=== PATIENT | male | born 1965 | race Caucasian/White ===

== ENCOUNTER 2018-11-30 05:52 | Inpatient (IN) ==
--- NOTE | 2018-11-27 09:16 | Anesthesiology Consultation ---
Date of Service November 27, 2018 Assessment & Plan (1) Encounter for pre-operative examination: PCP CLEARANCE 11/26/18: "Pt is medically cleared for surgery." Chart Review Chart Review: Acceptable Risk for Surgery and Patient NOT seen in Pre Admission Testing History Surgery Operation Date: 11/30/18 07:45 Proposed Procedures p L4-L5 Posterior Lumbar Decompression, L4-L5 Coflex, Spinal Cord Monitoring - Brad Carrion DO Height/Weight Height: 5 ft 8 in Weight: 97.522 kg Allergies Allergy/AdvReac Type Severity Reaction Status Date / Time No Known Allergies Allergy Verified 11/16/18 08:52 Medications Home Medications Medication Instructions Recorded Confirmed Last Taken ibuprofen 400 mg PO HS PRN 11/16/18 11/16/18 Unknown Past Medical History Medical History Chronic back pain LOWER BACK PAIN RADIATING INTO LEFT KNEE AND RIGHT BUTTOCK AND FOOT. Degenerative disc disease Obesity Past Surgical History Surgical History History of arthroscopy LEFT AND RIGHT ARM BICEP REPAIR Social History Smoking Status: Current every day smoker tobacco type: cigarettes Smoking cigarettes per day: HX OF 1/2 PPD X15 + YEARS Hx Alcohol Use: No Alcohol Intake Frequency Comment: 0 Hx Substance Use: No substance use type: does not use Testing Electrocardiogram Date: 11/25/18 Findings: + NSR @ (80) Chest X-Ray Date: 11/11/18 Findings: + NAD Laboratory Results 11/11/17 WBC: 14.1 H/H: 16.6/49.3 PLATELETS: 200 SODIUM: 137 POTASSIUM: 4.0 CHLORIDE: 105 CO2: 27 BUN: 15 CREATININE: 1.1 GLUCOSE: 94 PT: 13.2 PTT: 32.9 INR: 1.0 UA: negative for bacteria
[2018-11-30] MEDS ORDERED: CEFAZOLIN 2000MG 2,000 MG/15 ML SYR IV SCH (06:00)
[2018-11-30] MEDS ORDERED: GABAPENTIN 300 MG x 3 PO SCH (06:00)
[2018-11-30] MEDS ORDERED: ACETAMINOPHEN 500 MG TAB PO SCH (06:00)
[2018-11-30] MEDS ORDERED: CeleBREX 200 MG CAP PO SCH (06:00)
[2018-11-30] MEDS ORDERED: LR 15ML/HR IV SCH (06:00)
[2018-11-30] MEDS ORDERED: PROPOFOL IV EMULSION 10 MG/ML 100 ML VIAL IV ONE (06:54)
[2018-11-30] MEDS ORDERED: MIDAZOLAM HCL 1 MG/ML 2ML VIAL ONE (06:59)
[2018-11-30] MEDS ORDERED: fentaNYL citrate 100 MCG/2 ML VIAL ONE (06:59)
[2018-11-30] MEDS ORDERED: HYDROmorphone INJ 2 MG/ML SYR/VIAL ONE (07:10)
[2018-11-30] MEDS ORDERED: PROMETHAZINE HCL 6.25 MG in SODIUM CHLORIDE 0.9% 50 ML IV PRN (07:19)
[2018-11-30] MEDS ORDERED: ePHEDrine sulfate 50 MG/ML AMP IV PRN (07:19)
[2018-11-30] MEDS ORDERED: ONDANSETRON INJ 2 MG/ML 2 ML VIAL IV PRN ×2 (07:19→12:15)
[2018-11-30] MEDS ORDERED: ATROPINE SULFATE 0.1 MG/ML 10ML SYR IV PRN (07:19)
[2018-11-30] MEDS ORDERED: BUPIVACAINE/EPINEPHRINE 0.5% MPF 1:200,000 30 ML VIAL ONE (07:23)
[2018-11-30] MEDS ORDERED: BACITRACIN INJ 50,000 UNIT VIAL ONE (07:24)
--- NOTE | 2018-11-30 07:34 | History & Physical Bridge Note ---
Date of Service November 30, 2018 History & Physical Bridge Note I have examined the patient, reviewed the History & Physical and in the interval since the performance of the History & Physical I have noted the following changes of clinical significance: no changes noted
--- NOTE | 2018-11-30 07:34 | History & Physical Report ---
Date of Service November 30, 2018 Assessment & Plan (1) Spinal stenosis, lumbar region with neurogenic claudication: Posterior lumbar decompression L4-5 Coflex L4-5 Present on Admission?: Yes History of Present Illness Chief Complaint: Back and leg pain Primary Care Provider: NO PCP Back and leg pain Allergies Allergy/AdvReac Type Severity Reaction Status Date / Time No Known Allergies Allergy Verified 11/30/18 06:35 Home Medications Home Medications Medication Instructions Recorded Confirmed Type ibuprofen 400 mg PO HS PRN 11/16/18 11/30/18 History Past Med/Surg History Medical History Chronic back pain LOWER BACK PAIN RADIATING INTO LEFT KNEE AND RIGHT BUTTOCK AND FOOT. Degenerative disc disease Obesity Surgical History History of arthroscopy LEFT AND RIGHT ARM BICEP REPAIR Social History Preferred Language: Sami Communication Ability: Effective Billing Spec Required: No Current Living Situation: Spouse Other Information That Helps Us Care for You: No Feels Safe at Home: Yes Safety Concerns: Feels Safe At This Time Smoking Status: Current every day smoker Tobacco Type: cigarettes Cigarettes Per Day: HX OF 1/2 PPD X15 + YEARS Second Hand Exposure: No Tobacco Cessation Education Requested by Patient: No Hx Alcohol Use: No Hx Substance Use: No Physical Exam Vital Signs (Past 24 Hours): Last Vital Signs Temp 36.8 C 11/30/18 06:38 Pulse 56 L 11/30/18 06:38 Resp 20 11/30/18 06:38 BP 116/74 11/30/18 06:38 Pulse Ox 95 11/30/18 06:38 Physical Exam: Patient is neurologically intact alert and oriented
[2018-11-30] MEDS ORDERED: DEXAMETHASONE SOD INJ 4 MG/ML VIAL ONE (08:08)
[2018-11-30] MEDS ORDERED: NEOSTIGMINE METHYLSULFATE 1 MG/ML 10ML VIAL ONE (08:08)
[2018-11-30] MEDS ORDERED: PROPOFOL IV EMULSION 10 MG/ML 20 ML VIAL IV ONE (08:08)
[2018-11-30] MEDS ORDERED: GLYCOPYRROLATE 0.2 MG/ML VIAL ONE (08:08)
[2018-11-30] MEDS ORDERED: ONDANSETRON INJ 2 MG/ML 2 ML VIAL ONE (08:08)
[2018-11-30] MEDS ORDERED: LIDOCAINE HCL 2% 2 ML VIAL/AMP(20MG/ML) INFIL ONE (08:08)
[2018-11-30] MEDS ORDERED: LARYING-O-JET KIT (LTA) ONE (08:28)
[2018-11-30] MEDS ORDERED: FLOSEAL HEMOSTATIC MATRIX 10ML TOP ONE (08:31)
--- NOTE | 2018-11-30 08:41 | Operative Report ---
Post Operative Report Pre & Post Diagnosis Operation Date: 11/30/18 07:45 Pre-Op Diagnosis: Lumbar spinal stenosis with neurogenic claudication Post-Op Diagnosis: Same Procedure Operation Date: 11/30/18 07:45 Actual Procedures #1 lumbar decompression bilateral medial facetectomies foraminotomies L4-5. #2 placement posterior instrumentation using Coflex 12 mm implant. Surgeon Brad Carrion, DO Business Machine Mechanic Carline Davis Estimated Blood Loss 25 Findings See Below Patient is 5 foot 8 and 101 kg with a BMI of 34.1. His obesity added considerable technical difficulty to the exposure and procedure adding at least 25% more operative time to this surgery. Specimens None Indications This is a 53-year-old male well-known to me that presents with chronic persistent back and bilateral leg pain after failing extensive course of nonoperative care he like to undergo the above-mentioned procedure. Description of Procedure Patient was met with preoperatively identified all questions addressed and informed consent obtained. Patient was then taken to the operative suite underwent intubation placed in a prone position Brad table on top of the Horacio frame. All bony prominences well-padded eyes inspected to ensure no external pressure placed upon but this point the lumbar spine is prepped and draped in normal sterile fashion. Sharp dissection with the assistance of Bovie cautery was performed down to and exposing the l interlaminar space at L4-5 bilaterally. I verified my position with fluoroscopy and then performed a midline decompression including bilateral medial facetectomies to address lateral recess disease. I explored for any loose fragments of disc material. The incision was then copiously irrigated and a 12 mm Coflex placed in the interlaminar space and crimped into position. A 10 round JLUIS drain was inserted. Incision was then closed with 1 Vicryl in the fascia 2-0 Vicryl subcutaneously and 4 Monocryl for final skin closure Steri-Strip sterile dressings placed. Patient will continue PACU stable condition. He is note Carline Davis present at the entire procedure involved the patient positioning complex portions of the surgery and final skin closure. I attest to the content of the Intraoperative Record and any orders documented therein. Any exceptions are noted below.
--- NOTE | 2018-11-30 09:07 | Fluoroscopy Report ---
FL spine 1V any level HISTORY: Fusion. Laminectomy.. FLUOROSCOPY TIME: . FINDINGS: Intraoperative fluoroscopy was provided for the lumbar spine. 1 fluoroscopic spot images we re obtained. IMPRESSION: Fluoroscopy provided for a L4-L5 decompression and fusion. The above report was generated using voice recognition software. It may contain grammatical, syntax or spelling errors. Electronically signed by: Sincere Reynoso M.D. 11/30/2018 9:06 AM
[2018-11-30] MEDS: fentaNYL citrate 100 MCG/2 ML VIAL IV PRN ×2 (09:14→09:26)
--- NOTE | 2018-11-30 09:27 | Anesthesiology Progress Note ---
Date of Service November 30, 2018 Anesthesia Post Procedure Vital Signs Vital Signs: Temp Pulse Pulse Resp BP Pulse Ox 11/30/18 09:15 60 12 123/75 98 11/30/18 09:05 81 17 109/67 99 11/30/18 08:57 36.7 C 58 L 12 123/64 98 11/30/18 06:38 36.8 C 56 L 20 116/74 95 Pain Intensity Back: Pain Intensity: 8 Transfer of Care Handoff Completed per policy Notes Mental Status: alert / awake / arousable Patient Amnestic to Procedure: Yes Nausea / Vomiting: adequately controlled Pain: adequately controlled Airway Patency, RR, SpO2: stable & adequate BP & HR: stable & adequate Hydration State: stable & adequate Anesthetic Complications: no major complications apparent
[2018-11-30] MEDS: HYDROmorphone INJ 2 MG/ML SYR/VIAL IV PRN ×3 (09:31→11:07)
[2018-11-30] MEDS ORDERED: ROCURONIUM BROMIDE 10 MG/ML 5 ML VIAL ONE (10:26)
[2018-11-30] MEDS ORDERED: TRAMADOL HCL 50 MG TABLET PO PRN (12:15)
[2018-11-30] MEDS ORDERED: DO NOT ADMINISTER FLU VACCINE PRN (12:15)
[2018-11-30] MEDS ORDERED: FAMOTIDINE 20 MG TAB PO PRN (12:15)
[2018-11-30] MEDS ORDERED: BISACODYL 10 MG SUPP PR PRN (12:15)
[2018-11-30] MEDS ORDERED: ACETAMINOPHEN 1,000 MG/100 ML VIAL IV PRN (12:15)
[2018-11-30] MEDS ORDERED: ACETAMINOPHEN 500 MG TAB PO PRN (12:15)
[2018-11-30] MEDS ORDERED: ALUMINUM/MAGNESIUM SUSP 30 ML UDC PO PRN (12:15)
[2018-11-30] MEDS ORDERED: ONDANSETRON 4 MG TAB PO PRN (12:15)
[2018-11-30] MEDS ORDERED: DO NOT ADMINISTER PNEUMOCOCCAL VACCINE PRN (12:15)
[2018-11-30] MEDS ORDERED: LORazepam 0.5 MG/1 ML VIAL IV PRN (12:15)
[2018-11-30] MEDS ORDERED: HYDROmorphone INJ 0.5 MG/0.5 ML SYR IV PRN (12:15)
[2018-11-30] MEDS ORDERED: METOCLOPRAMIDE HCL INJ 5 MG/ML 2 ML VIAL IV PRN (12:15)
[2018-11-30] MEDS ORDERED: MAGNESIUM HYDROXIDE SUSP 30 ML UDC PO PRN (12:15)
[2018-11-30] MEDS ORDERED: PROMETHAZINE HCL 12.5 MG in SODIUM CHLORIDE 0.9% 50 ML IV PRN (12:15)
[2018-11-30] MEDS: KETOROLAC 30 MG/ML VIAL IV SCH ×2 (14:23→19:31)
[2018-11-30] MEDS: LACTATED RINGER'S 1,000 ML IV SCH ×2 (14:27→20:42)
[2018-11-30] MEDS: CEFAZOLIN 2000MG 2,000 MG/15 ML SYR IV SCH (16:24)
[2018-11-30] MEDS: OXYCODONE HCL IR 5 MG TAB (IMMEDIATE RELEASE) PO PRN (17:47)
[2018-11-30] MEDS ORDERED: DOCUSATE SODIUM/SENNA 50/8.6MG TAB PO SCH (21:00)
[2018-12-01] MEDS: CEFAZOLIN 2000MG 2,000 MG/15 ML SYR IV SCH (01:27)
[2018-12-01] MEDS: KETOROLAC 30 MG/ML VIAL IV SCH ×2 (01:32→07:39)
[2018-12-01] MEDS ORDERED: POLYETHYLENE (MIRALAX) 17 GM PACK PO SCH (06:00)
--- NOTE | 2018-12-01 07:46 | Anesthesiology Progress Note ---
Date of Service December 01, 2018 Anesthesia Post Procedure Vital Signs Vital Signs: Temp Pulse Pulse Pulse Resp BP Pulse Ox 12/01/18 07:03 36.6 C 54 L 20 112/72 96 12/01/18 03:14 36.6 C 57 L 16 130/62 97 11/30/18 22:45 36.7 C 58 L 16 106/60 93 11/30/18 19:55 36.8 C 77 18 130/75 94 11/30/18 16:27 94 11/30/18 15:00 36.7 C 71 16 116/73 96 11/30/18 14:00 88 16 132/77 94 11/30/18 13:00 64 16 125/76 94 11/30/18 12:29 36.6 C 62 17 118/69 95 11/30/18 12:00 36.8 C 65 16 114/72 98 11/30/18 11:35 50 L 12 100/76 94 11/30/18 11:25 36.5 C 65 12 111/73 95 11/30/18 11:15 79 14 117/82 96 11/30/18 11:05 80 14 133/87 96 11/30/18 10:55 63 18 115/74 96 11/30/18 10:45 54 L 12 102/71 95 11/30/18 10:35 60 12 110/77 94 11/30/18 10:25 70 16 116/76 95 11/30/18 10:15 50 L 12 129/76 95 11/30/18 10:05 73 15 125/78 97 11/30/18 09:55 54 L 12 129/91 94 11/30/18 09:45 65 14 128/85 97 11/30/18 09:35 50 L 12 100/75 94 11/30/18 09:25 71 15 134/72 98 11/30/18 09:15 60 12 123/75 98 11/30/18 09:05 81 17 109/67 99 11/30/18 08:57 36.7 C 58 L 12 123/64 98 Pain Intensity Back: Pain Intensity: 4 Notes Mental Status: alert / awake / arousable Patient Amnestic to Procedure: Yes Nausea / Vomiting: adequately controlled Pain: improving with treatment Airway Patency, RR, SpO2: stable & adequate BP & HR: stable & adequate Hydration State: stable & adequate Anesthetic Complications: no major complications apparent
[2018-12-01] MEDS: OXYCODONE HCL IR 5 MG TAB (IMMEDIATE RELEASE) PO PRN (12:32)
--- NOTE | 2018-12-01 14:23 | Discharge Summary ---
Date of Service December 01, 2018 Admission HPI Per Admitting Provider Back and leg pain Principal Diagnosis Lumbar spinal stenosis with neurogenic claudication Discharge Data Allergies Allergy/AdvReac Type Severity Reaction Status Date / Time No Known Allergies Allergy Verified 11/30/18 06:35 Consultations 11/30/18 12:15 Consult Case Management - Discharge Planning Routine Procedures Performed Operation Date: 11/30/18 07:45 Actual Procedures p L4-L5 Posterior Lumbar Decompression, L4-L5 Coflex(Not Applicable) - Brad Carrion DO Ordered Studies 11/30/18 07:45 FL fluoroscopy <1hr Routine [place] spine 1V any level Routine Hospital Course (1) Spinal stenosis, lumbar region with neurogenic claudication: Patient underwent decompression Coflex placement L4-5 tolerated as well as taken to orthopedic for postoperative postop day 1 leg symptoms markedly improved pain well controlled she was discharged home discharge orders and instructions found the chart for further review. Total Time Total Time Spent Total Time Spent (In Minutes): 20 minutes Discharge Plan Discharge Items Patient Disposition: Home - Self-Care Reason For Visit: LUMBAR SPINAL STENOSIS W/OUT NEUROGENIC CLAUDICATI Discharge Diagnosis: lumbar stenosis Discharge Goals: Improve function Activity: Per 'Additional Instructions' section Non-emergency contact: Primary Care Provider Call non-emergency contact if: you have any medication questions Follow-up/Referrals: PCP,NO [Primary Care Provider] - Diet: Regular Addtl Provider Instructions: ACTIVITY RECOMMENDATIONS: SELF CARE INSTRUCTIONS AFTER THORACIC/LUMBAR FUSIONS 1. You may walk to your tolerance. It is good exercise for your legs and back. Expect some back and intermittent leg aches and pains. 2. You may perform "counter-top" level activities (make a sandwich, yuly with a project, etc.). 3. No bending or lifting of more than 10 pounds or back twisting of any nature (roll like a log when turning in bed). 4. You may ride in a car for 20-30 minutes at a time. No driving until after your first visit with your doctor. 5. Frequent changes of position and restricting sitting to 30 minutes at a time will help limit the amount of back spasms and stiffness you may experience. 6. You may discontinue the use of ambulatory aids (cane, crutches, etc.) once your strength and confidence allow. 7. You may maintenance technician the shower and let water strike your incision when you arrive home at least once daily. Do not take a tub bath, sit in a hot tub or go into a swimming pool until after your first recheck in the office. SPECIAL CARE INSTRUCTIONS: VERY IMPORTANT TO READ AND REVIEW A. Your surgical incision has been closed with a cosmetic suture under the skin that will dissolve in about 6 weeks. In 14 days, you can use a pair of clean scissors and cut the suture that is left outside of the skin at the ends of your incision. 1. The small skin tapes can be removed 7 days after surgery if they have not fallen off by that point. 2. You may keep the wound open to air as much as possible to promote healing after post-op day number 5 unless told otherwise by your doctor. 3. If you think the wound looks like it is becoming infected (redness or worsening drainage) and/or you are experiencing fever, chill or worsening back pain and muscle spasms, contact the office so that we may evaluate you as soon as possible. B. Complications are uncommon, but please contact us if you have any signs or symptoms of: 1. wound infection (fever higher than 102.5 degrees F, redness, separation of wound, drainage, or increasing pain from the incision) 2. blood clots in legs (pain, swelling, redness and warmth in legs) 3. urinary tract infection (fever higher than 102.5 degrees F, burning upon urination or increased frequency of urination) 4. nerve problems (inability to walk on your toes or heels, numbness, loss of bowel or bladder control) 5. any other symptoms that concern you C. Please call the office at if you have any concerns or questions about your operation or recovery. D. No smoking! Smoking drastically decreases the chance of a solid fusion. E. Do not take any anti-inflammatory medications (Indocin, Advil, Motrin, Aspirin, Naprosyn, etc.) as these may inhibit the chance of a solid fusion. Tylenol is okay to take for pain. MANAGING PAIN AFTER SPINAL SURGERY 1. Narcotic medication is intended for short-term use and will be provided for surgical pain. Surgical pain usually lasts for a period of 4-6 weeks. Narcotic medication includes Percocet, Vicodin, Darvocet, Tylenol #3 or Lortab. 2. Longer-term pain is more appropriately treated with non-narcotic medication such as Tylenol ES. 3. Muscle spasm is not appropriately treated with narcotics. Muscle relaxers such as Soma, Flexeril or Skelaxin can be used along with Tylenol ES. 4. Remember that we all live with some "aches and pains". This is not unusual or uncommon after an injury or as we get older. a. Back pain is expected and may include muscle spasms for 4 to 6 weeks after surgery. The pain should gradually improve. If the pain worsens for no apparent reason, please contact the office. b. Intermittent leg pain may also be experienced and should not be concerned about unless it worsens for no apparent reason. If so, please contact the office. 5. We will provide appropriate medication within the normal guidelines of their prescribed use. We will also be very cautious and aware of potential abuse and extended duration of patients' medication needs. a. Pain medications are for your comfort and to assist with sleep and rest so that the tissue can heal. They are not provided in order to return to normal activity and should not be used through the day. To do so or worsening pain at night can result from ongoing tissue damage and development of tolerance to the prescribed medicine. 6. Please allow 2-3 days to process refills. Prescriptions will not be mailed but must be picked up at the office. FOLLOW UP VISIT: Keep your scheduled follow-up appointment. Any questions, please call the office at . Prescriptions: New tramadol 50 mg Tablet 5 mg PO Q4H PRN (Reason: Pain, Moderate) Qty: 20 RF: 0 oxycodone 5 mg Tablet 5 mg PO Q4H PRN (Reason: Pain, Severe) Qty: 20 RF: 0 Continued ibuprofen 400 mg Tablet 400 mg PO HS PRN (Reason: Pain) RF: 0 Stand-Alone Forms: [employer], [facility]/Other Patient Handouts: DVT Prevent Discharge Orders: Discharge Order (Routine); Ordered 12/01/18 Ordered By: Brad Carrion Admission Data Admit Date/Time: 11/30/18 11:21 Attending Provider: Brad Carrion Admit Provider: Brad Carrion Primary Care Provider: PCP,NO Service: Surgical Services Other Interventions: Discharge Summary Assessment (RN) Last Done: 12/01/18 11:59 DC Date/Time DO NOT enter until pt leaves facility: 12/01/18 14:02
== END 2018-12-01 14:02 | disposition home or self-care (01) | DRG 518 ==
LOC: ASU 05:52 → 3E 11:21

== ENCOUNTER 2019-04-28 07:41 | Inpatient (IN) ==
[2019-04-15 11:02] LABS: Basophils # (auto) 0.03 K/uL (0-0.2); Basophils % (auto) 0.3 %; Eosinophils # (auto) 0.14 K/uL (0-0.5); Eosinophils % (auto) 1.2 %; Hematocrit (blood only) 49.3 % (42-52); Immature Granulocytes # (auto) 0.03 K/uL (0.00-0.02); Immature Granulocytes % (auto) 0.3 %; Lymphocytes # (auto) 3.14 K/uL (1.2-3.4); Lymphocytes % (auto) 26.2 %; Mean Corpuscular Hemoglobin 34.1 pg (25-34); Mean Corpuscular Hgb Conc 34.5 g/dL (32-36); Mean Platelet Volume 11.3 fL (7.4-10.4); Monocytes # (auto) 0.88 K/uL (0.11-0.59); Monocytes % (auto) 7.4 %; Neutrophils # (auto) 7.75 K/uL (1.4-6.5); Neutrophils % (auto) 64.6 %; Platelet Count 207 K/uL (130-400); RDW Coefficient of Variation 12.9 % (11.5-14.5); RDW Standard Deviation 46.2 fL (36.4-46.3); Red Blood Count 4.98 M/uL (4.7-6.1); White Blood Count 11.97 K/uL (4.8-10.8)
[2019-04-15 11:14] LABS: INR 1.1 (0.9-1.1); Partial Thromboplastin Ratio 1.1; Partial Thromboplastin Time 28.5 Seconds (21.0-31.0); Prothrombin Time 11.1 Seconds (9.0-12.0)
[2019-04-15 11:46] LABS: Blood Urea Nitrogen 17 mg/dl (7-18); Calcium 8.9 mg/dl (8.5-10.1); Carbon Dioxide 25 mmol/L (21-32); Chloride 107 mmol/L (98-107); Est GFR (African American) 88.7; Est GFR (Non-African American) 76.5; Glucose 106 mg/dl (70-99); Potassium 3.9 mmol/L (3.5-5.1); Sodium 139 mmol/L (136-145)
[2019-04-15 11:49] LABS: Appearance Urine Clear (Clear); Bilirubin Urine Negative (Negative); Blood Urine Negative (Negative); Color Urine Yellow; Glucose Urine UA Negative (Negative); Ketones Urine Negative (Negative); Leukocyte Esterase Urine Negative (Negative); Nitrite Urine Negative (Negative); Protein Urine Negative (Negative); Specific Gravity Urine 1.023 (1.000-1.030); Urobilinogen Urine Negative (Negative)
--- NOTE | 2019-04-20 09:39 | Anesthesiology Consultation ---
Date of Service April 20, 2019 Assessment & Plan (1) Encounter for pre-operative examination: Chart Review Chart Review: Acceptable Risk for Surgery and Patient NOT seen in Pre Admission Testing Consults Requested none History Surgery Operation Date: 04/28/19 10:45 Proposed Procedures p L4-L5 Revision Decompression, L4-L5 Transforaminal Lumbar Interbody Fusion - Brad Carrion DO s L4-L5 Removal Coflex Implant with Spinal Cord Monitoring - Brad Carrion DO Height/Weight Height: 5 ft 8 in Weight: 99.79 kg Allergies Allergy/AdvReac Type Severity Reaction Status Date / Time No Known Allergies Allergy Verified 04/19/19 10:24 Medications Home Medications Medication Instructions Recorded Confirmed Last Taken ibuprofen 400 mg PO QAM 11/16/18 04/19/19 11/23/18 08:00 Past Medical History Medical History Chronic back pain LOWER BACK PAIN RADIATING INTO LEFT KNEE AND RIGHT BUTTOCK AND FOOT. Degenerative disc disease Obesity Past Family History Family History Father Family history of diabetes mellitus Past Surgical History Surgical History Fusion of spine LOWER BACK. 11/30/2018. GETA. No issues. H/O shoulder surgery R/L BICEPS ATTACHMENT SURGERY History of arthroscopy LEFT AND RIGHT ARM BICEP REPAIR Social History Smoking Status: Current every day smoker tobacco type: cigarettes Smoking cigarettes per day: HX OF 1/2 PPD X15 + YEARS Do You Dip or Chew Tobacco: No Smoking End Date: 10 CIGS A DAY X 20 YRS-"TO QUIT THIS WEEK" Hx Alcohol Use: Yes Alcohol type: beer alcohol intake frequency: a few times a month Hx Substance Use: No substance use type: does not use Testing Laboratory Results 04/15/19 10:08 04/15/19 10:08 PT 11.1 Seconds (9.0-12.0) 04/15/19 10:08 INR 1.1 (0.9-1.1) 04/15/19 10:08 APTT 28.5 Seconds (21.0-31.0) 04/15/19 10:08 Urine Color Yellow 04/15/19 10:08 Urine Appearance Clear (Clear) 04/15/19 10:08 Urine pH 5.0 (4.5-7.5) 04/15/19 10:08 Ur Specific [place] 1.023 (1.000-1.030) 04/15/19 10:08 Urine Protein Negative (Negative) 04/15/19 10:08 Urine Glucose (UA) Negative (Negative) 04/15/19 10:08 Urine Ketones Negative (Negative) 04/15/19 10:08 Urine Nitrite Negative (Negative) 04/15/19 10:08 Ur Leukocyte Esterase Negative (Negative) 04/15/19 10:08 Blood Type O Negative 04/15/19 10:09 Antibody Screen NEGATIVE 04/15/19 10:09 Electrocardiogram Date: 11/25/18 Findings: + NSR @ (80) Normal ECG. Chest X-Ray Date: 11/01/18 Findings: + NAD
[~2019-04-28 07:41] MED LIST: ACETAMINOPHEN 500 MG TAB PO SCH; CEFAZOLIN 2000MG 2,000 MG/15 ML SYR IV SCH; CeleBREX 200 MG CAP PO SCH; GABAPENTIN 600 MG DOSE PO SCH; LR 15ML/HR IV SCH
[2019-04-28] MEDS ORDERED: MIDAZOLAM HCL 1 MG/ML 2ML VIAL ONE (08:32)
[2019-04-28] MEDS ORDERED: HYDROmorphone INJ 2 MG/ML SYR/VIAL ONE ×2 (08:32→11:19)
[2019-04-28] MEDS ORDERED: fentaNYL citrate 100 MCG/2 ML VIAL ONE ×8 (08:32→11:41)
[2019-04-28] MEDS ORDERED: ROCURONIUM BROMIDE 10 MG/ML 5 ML VIAL ONE (08:35)
[2019-04-28] MEDS ORDERED: GLYCOPYRROLATE 0.2 MG/ML VIAL ONE (08:35)
[2019-04-28] MEDS ORDERED: ONDANSETRON INJ 2 MG/ML 2 ML VIAL ONE (08:35)
[2019-04-28] MEDS ORDERED: NEOSTIGMINE METHYLSULFATE 1 MG/ML 10ML VIAL ONE (08:35)
[2019-04-28] MEDS ORDERED: LIDOCAINE HCL 2% 2 ML VIAL/AMP(20MG/ML) INFIL ONE (08:35)
[2019-04-28] MEDS ORDERED: LARYING-O-JET KIT (LTA) ONE (08:35)
[2019-04-28] MEDS ORDERED: DEXAMETHASONE SOD INJ 4 MG/ML VIAL ONE (08:35)
[2019-04-28] MEDS ORDERED: PROPOFOL IV EMULSION 10 MG/ML 20 ML VIAL IV ONE (08:35)
--- NOTE | 2019-04-28 08:58 | History & Physical Bridge Note ---
Date of Service April 28, 2019 History & Physical Bridge Note I have examined the patient, reviewed the History & Physical and in the interval since the performance of the History & Physical I have noted the following changes of clinical significance: no changes noted
--- NOTE | 2019-04-28 08:59 | History & Physical Report ---
Date of Service April 28, 2019 Assessment & Plan (1) Lumbar disc herniation with radiculopathy: Revision decompression L4-5, transforaminal lumbar interbody fusion L4-5, removal of Coflex implant L4-5. Present on Admission?: Yes History of Present Illness Chief Complaint: Back and leg pain Primary Care Provider: NO PCP This is a 53-year-old male well-known to me that presents with worsening back and leg pain. After failing extensive course of nonoperative care is here for surgical intervention. Allergies Allergy/AdvReac Type Severity Reaction Status Date / Time No Known Allergies Allergy Verified 04/28/19 08:13 Home Medications Home Medications Medication Instructions Recorded Confirmed Type ibuprofen 400 mg PO QAM 11/16/18 04/28/19 History Past Med/Surg History Family History Father Family history of diabetes mellitus Social History Preferred Language: Slovenian Communication Ability: Effective Interpersonal Communications Professor Required: No Beliefs That Will Affect Care: None Current Living Situation: Spouse and Family Other Information That Helps Us Care for You: No Feels Safe at Home: Yes Safety Concerns: Feels Safe At This Time Smoking Status: Current every day smoker Tobacco Type: cigarettes ; Cigarettes Per Day: HX OF 1/2 PPD X15 + YEARS ; Do You Dip or Chew Tobacco: No ; Smoking End Date: 10 CIGS A DAY X 20 YRS-"TO QUIT THIS WEEK" ; Second Hand Exposure: No ; Hx Alcohol Use: Yes Alcohol type: beer Hx Substance Use: No Physical Exam Physical Exam: Patient is alert and oriented neurologically intact. Results & Data Vital Signs (Past 12 Hours) Vital Signs Temp Pulse Resp BP Pulse Ox 04/28/19 08:27 36.8 C 56 L 16 137/85 97
[2019-04-28] MEDS ORDERED: BACITRACIN INJ 50,000 UNIT VIAL ONE (09:12)
[2019-04-28] MEDS ORDERED: BUPIVACAINE/EPINEPHRINE 0.5% MPF 1:200,000 30 ML VIAL ONE (09:12)
[2019-04-28] MEDS ORDERED: FLOSEAL HEMOSTATIC MATRIX 10ML TOP ONE (10:10)
[2019-04-28] MEDS ORDERED: ONDANSETRON INJ 2 MG/ML 2 ML VIAL IV PRN ×2 (10:35→13:15)
[2019-04-28] MEDS ORDERED: ATROPINE SULFATE 0.1 MG/ML 10ML SYR IV PRN (10:35)
[2019-04-28] MEDS ORDERED: FLUMAZENIL 0.1 MG/1 ML 10 ML VIAL IV PRN (10:35)
[2019-04-28] MEDS ORDERED: ePHEDrine sulfate 50 MG/ML AMP IV PRN (10:35)
[2019-04-28] MEDS ORDERED: LABETALOL HCL IV 5 MG/ML 20ML IV PRN (10:35)
[2019-04-28] MEDS ORDERED: NALOXONE HCL 0.4 MG/1 ML VIAL/CARP IV PRN ×2 (10:35→13:15)
[2019-04-28] MEDS ORDERED: PROMETHAZINE HCL 12.5 MG in SODIUM CHLORIDE 0.9% 50 ML IV PRN ×2 (10:35→13:15)
[2019-04-28] MEDS ORDERED: ESMOLOL HCL INJ 10 MG/ML 10ML VIAL IV ONE (10:51)
[2019-04-28] MEDS ORDERED: ePHEDrine sulfate 50 MG/ML SYR ONE ×2 (10:51→11:22)
--- NOTE | 2019-04-28 11:19 | Operative Report ---
Post Operative Report Pre & Post Diagnosis Operation Date: 04/28/19 09:25 Pre-Op Diagnosis: Lumbar disc herniation with radiculopathy Post-Op Diagnosis: Lumbar disc herniation with radiculopathy Procedure Operation Date: 04/28/19 09:25 Actual Procedures #1 removal of posterior instrumentation L4-5. #2 revision decompression with bilateral medial facetectomies foraminotomies L4-5 per #3 posterior spinal fusion L4-5 per #4 placement posterior instrumentation L4-5 per #5 interbody fusion L4-5 per #6 placement of peek cage 14 x 26 mm at L4-5. #7 placement of locally harvested morselized autograft in the posterior lateral gutters. #8 placement infuse collagen sponge combined with master graft in the posterior lateral gutters and ostial amp and interbody space. Surgeon Brad Carrion, DO Railroad Construction Director Carline Davis Estimated Blood Loss 275 Findings See Below The patient is 5 foot 8 inches tall weighing over 99 kg with a BMI in excess of 33. The patient's body habitus did add significant technical difficulty throughout the procedure and at least 25% increase in operative time. Specimens None Indications Is with worsening back and left leg pain. After failing extensive course of nonoperative care is here for surgical intervention. Description of Procedure Patient was met with identified and informed consent obtained. Patient was then taken to the operative suite underwent intubation placed in the prone position the Brad table on top of the Horacio frame. All bony prominences well-padded eyes inspected to ensure no external pressure placed upon the peer at this point the lumbar spine was prepped and draped in the normal sterile fashion. Sharp dissection with the assistance of Bovie cautery was performed down to and exposing the lamina and transverse processes of L4-L5 bilaterally. And then removed the interlaminar construct at 4 5. I then performed a revision complete laminectomy of L4 with bilateral medial facetectomies foraminotomies. Identified a massive disc herniation on the left with significant neural encroachment. This was removed in its entirety. Pedicle screws were then placed in L4-L5 bilaterally with assistance of fluoroscopy the process surekha placed. By way of a trans-foraminal approach on the left complete discectomy was performed endplates curetted to subcortical bleeding bone and a 14 x 26 mm peek cage filled with ostium bone graft tapped in position. Rods were then locked in final position bilaterally. Transverse processes of L4 and L5 bur to subcortical bleeding bone. Infuse collagen sponge master graft and local autograft placed in the posterior lateral gutters. 15 round JLUIS drain inserted. The incision was then closed with 1 Vicryl in the fascia 2-0 Vicryl substantially and 4 Monocryl for final skin closure. Steri-Strip sterile dressings placed. Patient will continue PACU stable disc. Please note Carline Davis present at the entire procedure involved in patient positioning complex portions of the surgery and final skin closure. Lastly spinal cord monitoring was utilized that procedure no changes noted. I attest to the content of the Intraoperative Record and any orders documented therein. Any exceptions are noted below.
[2019-04-28] MEDS ORDERED: KETOROLAC 30 MG/ML VIAL ONE (11:22)
[2019-04-28] MEDS ORDERED: ALBUMIN HUMAN 5% 12.5 GM/250 ML VIAL IV ONE (11:42)
[2019-04-28] MEDS: HYDROmorphone INJ 1 MG/ML SYRINGE IV PRN ×4 (11:50→12:18)
--- NOTE | 2019-04-28 12:03 | Fluoroscopy Report ---
FL lumbar spine 2-3V CLINICAL HISTORY: L4-5 REMOVE HARDWARE/REVISION DECOMPRESSION/FUSION COMPARISON STUDY: 11/30/2018 FLUOROSCOPY TIME: 15 seconds. NUMBER OF FLUOROSCOPIC IMAGES: 2 FINDINGS: 2 intraoperative fluoroscopic spot images are provided for interpretation. There is been in terval removal of the posterior interspinous spacer. Now evident is a discectomy and interbody fusion at the L4-5 level with pedicle screw fixation. IMPRESSION: Intraoperative fluoroscopic spot images demonstrating a discectomy and interbody fusion with posterior pedicle screw fixation at the L4-5 level. Electronically signed by: Umer Guerra M.D. 04/28/2019 12:02 PM
--- NOTE | 2019-04-28 12:49 | Anesthesiology Progress Note ---
Date of Service April 28, 2019 Anesthesia Post Procedure Vital Signs Vital Signs: Temp Pulse Pulse Resp BP Pulse Ox 04/28/19 12:35 65 16 122/68 95 04/28/19 12:25 36.6 C 58 L 16 126/83 97 04/28/19 12:15 53 L 16 138/82 95 04/28/19 12:05 66 16 126/80 96 04/28/19 11:55 57 L 14 128/82 93 04/28/19 11:45 57 L 14 150/88 H 96 04/28/19 11:36 36.5 C 57 L 14 151/81 H 96 04/28/19 08:27 36.8 C 56 L 16 137/85 97 Pain Intensity Lower Back: Pain Intensity: 6 Transfer of Care Handoff Completed per policy Notes Mental Status: alert / awake / arousable Patient Amnestic to Procedure: Yes Nausea / Vomiting: adequately controlled Pain: adequately controlled Airway Patency, RR, SpO2: stable & adequate BP & HR: stable & adequate Hydration State: stable & adequate Anesthetic Complications: no major complications apparent
[2019-04-28] MEDS ORDERED: bisacodyL 10 MG SUPP PR PRN (13:15)
[2019-04-28] MEDS: LACTATED RINGER'S 1,000 ML IV SCH ×2 (13:15→20:59)
[2019-04-28] MEDS ORDERED: ACETAMINOPHEN 500 MG TAB PO PRN (13:15)
[2019-04-28] MEDS ORDERED: TRAMADOL HCL 50 MG TABLET PO PRN (13:15)
[2019-04-28] MEDS ORDERED: FAMOTIDINE 20 MG TAB PO PRN (13:15)
[2019-04-28] MEDS ORDERED: DO NOT ADMINISTER FLU VACCINE PRN (13:15)
[2019-04-28] MEDS ORDERED: METOCLOPRAMIDE HCL INJ 5 MG/ML 2 ML VIAL IV PRN (13:15)
[2019-04-28] MEDS ORDERED: ALUMINUM/MAGNESIUM SUSP 30 ML UDC PO PRN (13:15)
[2019-04-28] MEDS ORDERED: DO NOT ADMINISTER PNEUMOCOCCAL VACCINE PRN (13:15)
[2019-04-28] MEDS ORDERED: LORazepam 0.5 MG TAB PO PRN (13:15)
[2019-04-28] MEDS ORDERED: ONDANSETRON 4 MG TAB PO PRN (13:15)
[2019-04-28] MEDS ORDERED: SOD PHOSPHATE/SOD BIPHOSPHATE ENEMA 132 ML BTL PR PRN (13:15)
[2019-04-28] MEDS ORDERED: LORazepam 0.5 MG/1 ML VIAL IV PRN (13:15)
[2019-04-28] MEDS ORDERED: MAGNESIUM HYDROXIDE SUSP 30 ML UDC PO PRN (13:15)
[2019-04-28] MEDS ORDERED: HYDROmorphone INJ 0.5 MG/0.5 ML SYR IV PRN (13:15)
[2019-04-28] MEDS: KETOROLAC 30 MG/ML VIAL IV SCH ×2 (13:57→20:56)
[2019-04-28] MEDS ORDERED: ACETAMINOPHEN 1,000 MG/100 ML VIAL IV PRN (14:00)
[2019-04-28] MEDS: OXYCODONE HCL IR 5 MG TAB (IMMEDIATE RELEASE) PO PRN ×2 (15:50→23:56)
[2019-04-28] MEDS: CEFAZOLIN 2000MG 2,000 MG/15 ML SYR IV SCH (18:39)
[2019-04-28] MEDS: DOCUSATE SODIUM/SENNA 50/8.6MG TAB PO SCH (21:07)
[2019-04-29] MEDS: KETOROLAC 30 MG/ML VIAL IV SCH ×2 (02:19→07:49)
[2019-04-29] MEDS: CEFAZOLIN 2000MG 2,000 MG/15 ML SYR IV SCH (02:19)
[2019-04-29] MEDS: LACTATED RINGER'S 1,000 ML IV SCH (02:20)
[2019-04-29] MEDS: POLYETHYLENE (MIRALAX) 17 GM PACK PO SCH ×3 (06:10→18:43)
[2019-04-29 06:29] LABS: Basophils # (auto) 0.01 K/uL (0-0.2); Basophils % (auto) 0.1 %; Eosinophils # (auto) 0.07 K/uL (0-0.5); Eosinophils % (auto) 0.6 %; Hematocrit (blood only) 38.5 % (42-52); Hemoglobin 12.9 g/dL (14.0-18.0); Immature Granulocytes # (auto) 0.04 K/uL (0.00-0.02); Immature Granulocytes % (auto) 0.3 %; Lymphocytes % (auto) 11.2 %; Mean Corpuscular Hgb Conc 33.5 g/dL (32-36); Mean Corpuscular Volume 101.6 fL (80-100); Mean Platelet Volume 10.7 fL (7.4-10.4); Monocytes # (auto) 1.12 K/uL (0.11-0.59); Monocytes % (auto) 9.7 %; Neutrophils # (auto) 9.05 K/uL (1.4-6.5); Neutrophils % (auto) 78.1 %; Platelet Count 159 K/uL (130-400); RDW Coefficient of Variation 13.2 % (11.5-14.5); RDW Standard Deviation 48.7 fL (36.4-46.3); Red Blood Count 3.79 M/uL (4.7-6.1); White Blood Count 11.59 K/uL (4.8-10.8)
[2019-04-29 07:09] LABS: BUN Creatinine Ratio 13.8 (10-20); Calcium 8.1 mg/dl (8.5-10.1); Creatinine Clr Calc Pharmacy 81.3 ml/min; Est GFR (African American) 79.8; Est GFR (Non-African American) 68.8; Potassium 4.1 mmol/L (3.5-5.1)
--- NOTE | 2019-04-29 08:16 | Orthopedic Progress Note ---
Date of Service April 29, 2019 Assessment & Plan (1) Lumbar disc herniation with radiculopathy: This time continue physical therapy monitor his JLUIS output anticipate discharge home the next few days. Present on Admission?: Yes Subjective Patient's leg pain is markedly improved. Back pain controlled. Physical Exam Physical Exam: Patient has good strength testing appears comfortable. Results & Data Vital Signs (Past 12 Hours) Vital Signs Temp Pulse Pulse Resp BP Pulse Ox 04/29/19 07:43 36.9 C 70 18 106/70 93 04/29/19 03:52 36.9 C 66 18 108/68 91 04/28/19 23:43 37.2 C 72 18 101/62 95
--- NOTE | 2019-04-29 08:36 | Anesthesiology Progress Note ---
Date of Service April 29, 2019 Anesthesia Post Procedure Vital Signs Vital Signs: Temp Pulse Pulse Resp BP Pulse Ox 04/29/19 07:43 36.9 C 70 18 106/70 93 04/29/19 03:52 36.9 C 66 18 108/68 91 04/28/19 23:43 37.2 C 72 18 101/62 95 04/28/19 16:29 36.6 C 54 L 18 117/66 97 04/28/19 14:22 36.4 C L 51 L 16 116/72 95 04/28/19 13:50 36.5 C 48 L 18 115/72 97 04/28/19 13:20 36.5 C 53 L 18 120/77 95 04/28/19 12:55 50 L 13 134/72 96 04/28/19 12:45 54 L 14 123/68 97 04/28/19 12:35 65 16 122/68 95 04/28/19 12:25 36.6 C 58 L 16 126/83 97 04/28/19 12:15 53 L 16 138/82 95 04/28/19 12:05 66 16 126/80 96 04/28/19 11:55 57 L 14 128/82 93 04/28/19 11:45 57 L 14 150/88 H 96 04/28/19 11:36 36.5 C 57 L 14 151/81 H 96 Pain Intensity Lower Back: Pain Intensity: 3 Notes Mental Status: alert / awake / arousable and participated in evaluation Patient Amnestic to Procedure: Yes Nausea / Vomiting: adequately controlled Pain: adequately controlled Airway Patency, RR, SpO2: stable & adequate BP & HR: stable & adequate Hydration State: stable & adequate Anesthetic Complications: no major complications apparent and Pt Satisfied with anesthetic care
[2019-04-29] MEDS: OXYCODONE HCL IR 5 MG TAB (IMMEDIATE RELEASE) PO PRN ×2 (14:45→18:46)
[2019-04-29] MEDS: DOCUSATE SODIUM/SENNA 50/8.6MG TAB PO SCH (21:02)
[2019-04-29] MEDS ORDERED: Nursing to Pharmacy Communication ONE (23:14)
[2019-04-30] MEDS: OXYCODONE HCL IR 5 MG TAB (IMMEDIATE RELEASE) PO PRN ×3 (00:50→09:45)
--- NOTE | 2019-04-30 10:06 | Discharge Summary ---
Date of Service April 30, 2019 Admission HPI Per Admitting Provider This is a 53-year-old male well-known to me that presents with worsening back and leg pain. After failing extensive course of nonoperative care is here for surgical intervention. Principal Diagnosis Herniated nucleus pulposus with radiculopathy L4-5 Discharge Data Allergies Allergy/AdvReac Type Severity Reaction Status Date / Time No Known Allergies Allergy Verified 04/28/19 08:13 Consultations 04/28/19 13:15 Consult Case Management - Discharge Planning Routine Procedures Performed Operation Date: 04/28/19 09:25 Actual Procedures p L4-L5 Revision Decompression, L4-L5 Transforaminal Lumbar Interbody Fusion, Spinal Cord Monitoring Use of Osetoamp and InFuse(Not Applicable) - Brad Carrion DO s L4-L5 Removal Coflex Implant(Not Applicable) - Brad Carrion DO Ordered Studies 04/28/19 09:25 FL fluoroscopy <1hr Routine FL lumbar spine 2-3V Routine Hospital Course (1) Spinal stenosis, lumbar region with neurogenic claudication: Patient underwent lumbar decompression fusion tolerated as well as taken to orthopedic for postoperative. Postop day 1 left leg symptoms markedly improved. He is ambulating well. Progressed the postop day #2. JLUIS drain decreasing appropriately. Subsequently discharged home. Discharge orders instructions from the chart for further review. Total Time Total Time Spent Total Time Spent (In Minutes): 20 minutes Discharge Plan Discharge Items Patient Disposition: Home - Self-Care Reason For Visit: LUMBAR INTERVERTEBRAL DISC DISPLACEMENT Discharge Diagnosis: Lumbar spinal stenosis with herniated was pulposis Activity: Per Instructions section Non-emergency contact: Primary Care Provider Call non-emergency contact if: you have any medication questions Follow-up/Referrals: PCP,NO [Primary Care Provider] - Diet: Regular Addtl Attending Provider Instructions: ACTIVITY RECOMMENDATIONS: SELF CARE INSTRUCTIONS AFTER THORACIC/LUMBAR FUSIONS 1. You may walk to your tolerance. It is good exercise for your legs and back. Expect some back and intermittent leg aches and pains. 2. You may perform "counter-top" level activities (make a sandwich, yuly with a project, etc.). 3. No bending or lifting of more than 10 pounds or back twisting of any nature (roll like a log when turning in bed). 4. You may ride in a car for 20-30 minutes at a time. No driving until after your first visit with your doctor. 5. Frequent changes of position and restricting sitting to 30 minutes at a time will help limit the amount of back spasms and stiffness you may experience. 6. You may discontinue the use of ambulatory aids (cane, crutches, etc.) once your strength and confidence allow. 7. You may joint runner the shower and let water strike your incision when you arrive home at least once daily. Do not take a tub bath, sit in a hot tub or go into a swimming pool until after your first recheck in the office. SPECIAL CARE INSTRUCTIONS: VERY IMPORTANT TO READ AND REVIEW A. Your surgical incision has been closed with a cosmetic suture under the skin that will dissolve in about 6 weeks. In 14 days, you can use a pair of clean scissors and cut the suture that is left outside of the skin at the ends of your incision. 1. The small skin tapes can be removed 7 days after surgery if they have not fallen off by that point. 2. You may keep the wound open to air as much as possible to promote healing after post-op day number 5 unless told otherwise by your doctor. 3. If you think the wound looks like it is becoming infected (redness or worsening drainage) and/or you are experiencing fever, chill or worsening back pain and muscle spasms, contact the office so that we may evaluate you as soon as possible. B. Complications are uncommon, but please contact us if you have any signs or symptoms of: 1. wound infection (fever higher than 102.5 degrees F, redness, separation of wound, drainage, or increasing pain from the incision) 2. blood clots in legs (pain, swelling, redness and warmth in legs) 3. urinary tract infection (fever higher than 102.5 degrees F, burning upon urination or increased frequency of urination) 4. nerve problems (inability to walk on your toes or heels, numbness, loss of bowel or bladder control) 5. any other symptoms that concern you C. Please call the office at if you have any concerns or questions about your operation or recovery. D. No smoking! Smoking drastically decreases the chance of a solid fusion. E. Do not take any anti-inflammatory medications (Indocin, Advil, Motrin, Aspirin, Naprosyn, etc.) as these may inhibit the chance of a solid fusion. Tylenol is okay to take for pain. MANAGING PAIN AFTER SPINAL SURGERY 1. Narcotic medication is intended for short-term use and will be provided for surgical pain. Surgical pain usually lasts for a period of 4-6 weeks. Narcotic medication includes Percocet, Vicodin, Darvocet, Tylenol #3 or Lortab. 2. Longer-term pain is more appropriately treated with non-narcotic medication such as Tylenol ES. 3. Muscle spasm is not appropriately treated with narcotics. Muscle relaxers such as Soma, Flexeril or Skelaxin can be used along with Tylenol ES. 4. Remember that we all live with some "aches and pains". This is not unusual or uncommon after an injury or as we get older. a. Back pain is expected and may include muscle spasms for 4 to 6 weeks after surgery. The pain should gradually improve. If the pain worsens for no apparent reason, please contact the office. b. Intermittent leg pain may also be experienced and should not be concerned about unless it worsens for no apparent reason. If so, please contact the office. 5. We will provide appropriate medication within the normal guidelines of their prescribed use. We will also be very cautious and aware of potential abuse and extended duration of patients' medication needs. a. Pain medications are for your comfort and to assist with sleep and rest so that the tissue can heal. They are not provided in order to return to normal activity and should not be used through the day. To do so or worsening pain at night can result from ongoing tissue damage and development of tolerance to the prescribed medicine. 6. Please allow 2-3 days to process refills. Prescriptions will not be mailed but must be picked up at the office. FOLLOW UP VISIT: Keep your scheduled follow-up appointment. Any questions, please call the office at . Pending Studies at Discharge: No Stand-Alone Forms: [facility] Medications and DC Order Prescriptions: New tramadol 50 mg Tablet 50 mg PO Q4H PRN (Reason: Pain, Moderate) Qty: 30 RF: 0 oxycodone 5 mg Tablet 5 mg PO Q4H PRN (Reason: Pain, Severe) Qty: 30 RF: 0 Discontinued ibuprofen 400 mg Tablet 400 mg PO QAM RF: 0 Discharge Orders: Discharge Order (Routine); Ordered 04/30/19 Ordered By: Brad Carrion Admission Data Admit Date/Time: 04/28/19 11:26 Attending Provider: Brad Carrion Admit Provider: Brad Carrion Primary Care Provider: PCP,NO
== END 2019-04-30 12:00 | disposition home or self-care (01) | DRG 455 ==
LOC: ASU 07:41 → 3W 11:26